=== PATIENT | female | born 1960 | race Caucasian/White ===

== ENCOUNTER 2023-07-15 11:21 | Emergency (ER) | payer MEDICAID ==
[~2023-07-15] VITALS: Ht 165.1 cm; Wt 65.0 kg
[2023-07-15 11:56] LABS: BASOPHILS # (AUTO) 0.1 X10'3 (0-0.2); BASOPHILS % (AUTO) 0.8 % (0-1); EOSINOPHILS # (AUTO) 0.1 X10'3 (0-0.9); EOSINOPHILS % (AUTO) 0.8 % (0-6); HEMATOCRIT 42.4 % (35.0-45.0); HEMOGLOBIN 14.3 g/dl (12.0-16.0); LYMPHOCYTES # (AUTO) 1.6 X10'3 (1.1-4.8); LYMPHOCYTES % (AUTO) 25.4 % (21-51); MEAN CORPUSCULAR HEMOGLOBIN 30.7 PG (27.0-31.0); MEAN CORPUSCULAR HGB CONC 33.8 g/dL (33.0-36.5); MEAN CORPUSCULAR VOLUME 90.7 FL (78-98); MEAN PLATELET VOLUME 8.4 FL (7.4-10.4); MONOCYTES # (AUTO) 0.4 X10'3 (0-0.9); MONOCYTES % (AUTO) 6.1 % (2-12); NEUTROPHILS # (AUTO) 4.3 X10'3 (1.8-7.7); NEUTROPHILS % (AUTO) 66.9 % (42-75); PLATELET COUNT 219 X10'3 (140-440); RED BLOOD COUNT 4.67 X10'6 (4.20-5.60); RED CELL DISTRIBUTION WIDTH 14.4 % (11.5-14.5); WHITE BLOOD COUNT 6.4 X10'3 (4.5-11.0)
[2023-07-15 12:22] LABS: ALBUMIN 3.5 G/DL (3.4-5.0); ANION GAP 14 (8-16); BLOOD UREA NITROGEN 12 MG/DL (7-18); BUN/CREATININE RATIO 12.8 (10.0-20.0); CALCIUM 8.9 MG/DL (8.5-10.1); CHLORIDE 104 MMOL/L (99-107); CREATININE 0.94 MG/DL (0.40-0.90); GLUCOSE 173 MG/DL (70-104); POTASSIUM 3.3 MMOL/L (3.5-5.1); PRO BRAIN NATRIURETIC PEPTIDE 173 PG/ML (0-125); SODIUM 142 MMOL/L (135-145); TOTAL CARBON DIOXIDE 23.7 MMOL/L (24-32); eCRCL 56 ML/MIN; eGFR 60 ML/MIN
[2023-07-15 12:45] LABS: URINE AMPHETAMINE SCREEN NEGATIVE (Neg); URINE BARBITUATE SCREEN NEGATIVE (Neg); URINE BENZODIAZEPINES SCREEN NEGATIVE (Neg); URINE CANNABINOID SCREEN NEGATIVE (Neg); URINE COCAINE SCREEN NEGATIVE (Neg); URINE METHADONE SCREEN NEGATIVE (Neg); URINE OPIATE SCREEN NEGATIVE (Neg); URINE PHENCYCLIDINE SCREEN NEGATIVE (Neg)
[2023-07-15] MEDS: normal saline 1000ML IV soln IVB ONE (13:10)
[2023-07-15] MEDS ORDERED: iohexol 350MG/ML 100ml bottle IV ONE (13:27)
[2023-07-15] MEDS ORDERED: potassium Cl 40MEQ/1/2NS 520ml 520 ML IV PRN (14:15)
[2023-07-15] MEDS ORDERED: ondansetron/PF 4mg/2ml inj IV PRN ×2 (14:15→19:30)
[2023-07-15] MEDS ORDERED: magnesium Cl slow-release 64mg tablet PO PRN (14:15)
[2023-07-15] MEDS ORDERED: potassium Cl 20 mEq SR tablet PO PRN ×2 (14:15)
[2023-07-15] MEDS ORDERED: magnesium 4gm in 100ml NS 100 ML IV PRN (14:15)
[2023-07-15] MEDS ORDERED: glucagon, human recombinant 1mg kit SUBCUT PRN (14:15)
[2023-07-15] MEDS ORDERED: dextrose 50%-water 50ml dispensing syringe IV PRN ×2 (14:15)
[2023-07-15] MEDS ORDERED: normal saline 1000ml 1,000 ML IV SCH (14:15)
[2023-07-15] MEDS ORDERED: acetaminophen 325mg tablet PO PRN ×4 (14:15→19:30)
[2023-07-15] MEDS ORDERED: magnesium 2GM in 50ml NS 50 ML IV PRN (14:15)
[2023-07-15] MEDS ORDERED: DEXTROSE 15 GM of carb/4 tabs (each vial/BOTTLE has 4 tablets) PO PRN ×2 (14:15)
[2023-07-15] MEDS ORDERED: insulin Lispro (HumaLOG) vial - multi-dose SQ SCH (17:00)
[2023-07-15] MEDS: levetiracetam inj 1,000 MG in normal saline 100ml IV soln 100 ML IV ONE (17:11)
[2023-07-15] MEDS: morphine 4 MG/ML inj SYRINge IV ONE (17:43)
[2023-07-15] MEDS: ondansetron/PF 4mg/2ml inj IV ONE (17:43)
[2023-07-15] MEDS ORDERED: morphine 2 MG/ML inj. syringe IV PRN ×2 (19:30)
[2023-07-15] MEDS ORDERED: mag hydrox/Alum hydrox/simeth 30ml oral suspension PO PRN (19:30)
[2023-07-15] MEDS ORDERED: HYDROcodone/acetaminophen 5mg/325mg tablet PO PRN (19:30)
[2023-07-15] MEDS ORDERED: magnesium hydroxide 30ml (MOM) UD suspension PO PRN (19:30)
[2023-07-15] MEDS ORDERED: ALB0.5UD IH (19:49)
[2023-07-15] MEDS ORDERED: ADV50250 IH (19:49)
[2023-07-15] MEDS ORDERED: CARV-50 PO (19:49)
[2023-07-15] MEDS ORDERED: GLIP5TAB26 PO (19:49)
[2023-07-15] MEDS ORDERED: SITA50TA PO (19:54)
[2023-07-15] MEDS ORDERED: LOSA-418 PO (19:54)
[2023-07-15] MEDS ORDERED: METF-1157 PO (19:56)
[2023-07-15] MEDS ORDERED: SIMV-343 PO (19:57)
[2023-07-15] MEDS ORDERED: SPIR1TAB4 PO (19:58)
[2023-07-15] MEDS: docusate sod 100mg capsule PO SCH (20:00)
[2023-07-15] MEDS ORDERED: levetiracetam inj 2,000 MG in normal saline 100ml IV soln 100 ML IV SCH (20:00)
[2023-07-15] MEDS ORDERED: heparin, porcine 5000 units/ml vial SQ SCH (20:00)
[2023-07-15 20:58] VITALS: BP 146/73
[2023-07-15] MEDS: HYDROmorphone 1 mg/ml syringe IV ONE (21:05)
[2023-07-16 02:01] VITALS: PULSE 51; RESP 20; TEMP 98; O2SAT 97
[2023-07-16] MEDS ORDERED: aspirin 81mg, enteric-coated 1 TAB TABLET.DR PO SCH (08:00)
== END 2023-07-15 22:30 ==
LOC: ER 11:23 → UNDOADMIN 19:31 → ED HOLD 19:31 → UNDODISIN 22:30 → ER 22:30
DX: R41.82 Altered mental status, unspecified (principal); R51.9 Headache, unspecified; R11.2 Nausea with vomiting, unspecified; I72.9 Aneurysm of unspecified site; Z20.822 Contact with and (suspected) exposure to COVID-19; E11.9 Type 2 diabetes mellitus without complications; F41.9 Anxiety disorder, unspecified; F17.210 Nicotine dependence, cigarettes, uncomplicated; Z60.2 Problems related to living alone; F32.9 Major depressive disorder, single episode, unspecified; Z88.8 Allergy status to other drugs, medicaments and biological substances
CPT/HCPCS: 36415; 70450; 70496; 70498; 70551; 71045; 80048; 80305; 82948; 83880; 84484; 85025; 85651; 87811; 93005; 93880; 96361; 96374; 96375; 99285; J1170; J1815; J1953; J2270; J2405; J3490; J7030; Q9967; 96365; G0378